=== PATIENT | male | born 2000 | race Caucasian/White ===

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

== ENCOUNTER 2023-09-22 22:25 | Observation (INO) | payer MEDICAID ==
[~2023-09-22] VITALS: Ht 175.3 cm; Wt 66.7 kg
[2023-09-22 22:25] VITALS: BP 130/75; PULSE 150; RESP 30; RESP 40; TEMP 97.4; O2SAT 98
[2023-09-22] MEDS ORDERED: methylPREDNISolone SS 125 MG/2 ML VIAL ONE (22:30)
[2023-09-22] MEDS ORDERED: MAG SULF 2000 MG/WATER PREMIX 50 ML IV ONE (22:30)
[2023-09-22] MEDS ORDERED: ALBUTEROL 0.083% 2.5 MG/3 ML NEBU INH ONE (22:32)
[2023-09-22] MEDS: IPRATROPIUM 0.02% 0.5 MG/2.5 ML NEBU INH ONE (22:33)
[2023-09-22] MEDS: ALBUTEROL 0.083% 2.5 MG/3 ML NEBU INH ONE (22:33)
[2023-09-22] MEDS ORDERED: IPRATROPIUM 0.02% 0.5 MG/2.5 ML NEBU INH ONE (22:33)
[2023-09-22 22:34] VITALS: PULSE 154; RESP 48; O2SAT 95
[2023-09-22 22:47] LABS: BASOPHILS # (AUTO) 0.1 K/uL (0.00-0.22); BASOPHILS % (AUTO) 0.7 % (0.0-2.0); EOSINOPHILS # (AUTO) 2.2 K/uL (0-0.4); EOSINOPHILS % (AUTO) 10.6 % (0.0-4.0); HEMATOCRIT 49.5 % (36-52); HEMOGLOBIN 15.7 g/dL (12.0-18.0); LYMPHOCYTES # (AUTO) 7.3 K/uL (2.0-11.5); LYMPHOCYTES % (AUTO) 34.5 % (20.5-51.1); MEAN CORPUSCULAR HEMOGLOBIN 22 pg (27-31); MEAN CORPUSCULAR HGB CONC 32 g/dL (33-37); MEAN CORPUSCULAR VOLUME 70.5 fL (80-94); MONOCYTES # (AUTO) 1.5 K/uL (0.8-1.0); NEUTROPHILS % (AUTO) 47.2 % (42.2-75.2); PLATELET COUNT (AUTO) 392 K/uL (140-450); RED BLOOD CELL COUNT(AUTO) 7.02 MIL/uL (4.20-6.10); RED CELL DISTRIBUTION WIDTH 14.6 % (11.6-13.7); WHITE BLOOD COUNT (AUTO) 21.2 K/uL (4.8-10.8)
[2023-09-22] MEDS: ONDANSETRON 4 MG/2 ML VIAL IVP ONE (22:49)
[2023-09-22] MEDS: methylPREDNISolone SS 125 MG/2 ML VIAL IVP ONE (22:50)
[2023-09-22] MEDS: MAG SULF 2000 MG/WATER PREMIX 50 ML IV ONE (23:01)
[2023-09-22 23:09] LABS: ANION GAP 18.1 (8-16); CALCIUM 8.9 mg/dL (8.5-10.1); CARBON DIOXIDE 23.6 mmol/L (21-32); POTASSIUM 3.7 mmol/L (3.5-5.1)
[2023-09-22 23:23] LABS: CREATININE 1.3 mg/dL (0.6-1.3)
[2023-09-22 23:54] LABS: FLU A ANTIGEN negative (NEGATIVE); FLU B ANTIGEN NEGATIVE (NEGATIVE)
[2023-09-23] VITALS (15 sets, daily range): BP systolic 106–128; BP diastolic 59–64; PULSE 102–127; RESP 16–24; TEMP 97.6–98.4; O2SAT 93–99
[2023-09-23] MEDS ORDERED: IPRATROPIUM 0.02% 0.5 MG/2.5 ML NEBU INH ONE (00:01)
[2023-09-23] MEDS ORDERED: ALBUTEROL 0.083% 2.5 MG/3 ML NEBU INH ONE ×3 (00:03→03:57)
[2023-09-23] MEDS: ALBUTEROL 0.083% 2.5 MG/3 ML NEBU INH ONE ×3 (00:07→02:48)
[2023-09-23] MEDS: IPRATROPIUM 0.02% 0.5 MG/2.5 ML NEBU INH ONE (00:10)
[2023-09-23] MEDS: BUDESONIDE 0.5 MG/2 ML NEBU INH ONE (01:00)
[2023-09-23] MEDS ORDERED: ONDANSETRON 4 MG/2 ML VIAL IM/IVP PRN (01:45)
[2023-09-23] MEDS ORDERED: POTASSIUM CHLORIDE 10 MEQ TABER PO PRN (01:45)
[2023-09-23] MEDS ORDERED: ALBUTEROL SULFATE/IPRATROPIU 3 ML SOL IH PRN (01:45)
[2023-09-23] MEDS ORDERED: guaiFENesin DM 200/20 MG-10 ML 10 ML UDC PO PRN (01:45)
[2023-09-23] MEDS ORDERED: ACETAMINOPHEN 325 MG TAB PO PRN (01:45)
[2023-09-23] MEDS ORDERED: DOCUSATE SODIUM 100 MG GELCAP PO PRN (01:45)
[2023-09-23] MEDS ORDERED: HYDROcodone/APAP 7.5/325 MG 1 TAB PO PRN (01:45)
[2023-09-23] MEDS ORDERED: ZOLPIDEM 5 MG TAB PO PRN (01:45)
[2023-09-23] MEDS: ALBUTEROL 0.083% 2.5 MG/3 ML NEBU INH PRN (02:22)
[2023-09-23] MEDS ORDERED: ALBUTEROL SULFATE/IPRATROPIU 3 ML SOL IH SCH (03:00)
[2023-09-23] MEDS: ALBUTEROL 0.083% 2.5 MG/3 ML NEBU INH SCH (03:58)
[2023-09-23] MEDS: NACL 0.9% 1,000 ML IV SCH (04:00)
[2023-09-23] MEDS ORDERED: MAG SULF 2000 MG/WATER PREMIX 50 ML IV ONE (06:25)
[2023-09-23 07:20] LABS: BASOPHILS % (AUTO) 0.2 % (0.0-2.0); EOSINOPHILS % (AUTO) 0.3 % (0.0-4.0); HEMATOCRIT 45.2 % (36-52); HEMOGLOBIN 14.4 g/dL (12.0-18.0); LYMPHOCYTES # (AUTO) 0.7 K/uL (2.0-11.5); LYMPHOCYTES % (AUTO) 6.1 % (20.5-51.1); MEAN CORPUSCULAR HEMOGLOBIN 23 pg (27-31); MEAN CORPUSCULAR HGB CONC 32 g/dL (33-37); MEAN CORPUSCULAR VOLUME 70.7 fL (80-94); MONOCYTES # (AUTO) 0.2 K/uL (0.8-1.0); MONOCYTES % (AUTO) 1.4 % (1.7-9.3); NEUTROPHILS # (AUTO) 10.2 K/uL (1.8-7.7); PLATELET COUNT (AUTO) 294 K/uL (140-450); RED BLOOD CELL COUNT(AUTO) 6.39 MIL/uL (4.20-6.10); RED CELL DISTRIBUTION WIDTH 14.6 % (11.6-13.7); WHITE BLOOD COUNT (AUTO) 11.1 K/uL (4.8-10.8)
[2023-09-23 07:41] LABS: ALBUMIN 3.6 g/dL (3.4-5.0); ANION GAP 20.8 (8-16); CALCIUM 8.5 mg/dL (8.5-10.1); CARBON DIOXIDE 19.8 mmol/L (21-32); CREATININE 1.6 mg/dL (0.6-1.3); MAGNESIUM 2.2 mg/dL (1.8-2.4); PHOSPHORUS 4.1 mg/dL (2.5-4.9); POTASSIUM 3.6 mmol/L (3.5-5.1); TOTAL BILIRUBIN 0.5 mg/dL (0.0-1.0); TOTAL PROTEIN, SERUM 7.7 g/dL (6.4-8.2)
[2023-09-23] MEDS: PANTOPRAZOLE 40 MG TABEC PO SCH (10:29)
[2023-09-23] MEDS: AZITHROMYCIN 500 MG in DEXTROSE 5% 250 ML IV SCH (12:56)
[2023-09-23] MEDS: methylPREDNISolone SS 40 MG/ML VIAL IVP SCH (15:42)
[2023-09-24] VITALS: BP 106/46; PULSE 117; PULSE 121; RESP 20; TEMP 97.7; O2SAT 97
[2023-09-24 04:00] VITALS: BP 105/44; PULSE 65; PULSE 98; RESP 19; TEMP 97.8; O2SAT 95
[2023-09-24 04:19] VITALS: PULSE 103; RESP 18; O2SAT 96
[2023-09-24] MEDS: ALBUTEROL 0.083% 2.5 MG/3 ML NEBU INH PRN (04:19)
[2023-09-24 07:11] LABS: HEMATOCRIT 39.2 % (36-52); HEMOGLOBIN 12.5 g/dL (12.0-18.0); LYMPHOCYTES % (AUTO) 6.1 % (20.5-51.1); MEAN CORPUSCULAR HEMOGLOBIN 22 pg (27-31); MEAN CORPUSCULAR HGB CONC 32 g/dL (33-37); MEAN CORPUSCULAR VOLUME 70.3 fL (80-94); MONOCYTES # (AUTO) 0.7 K/uL (0.8-1.0); NEUTROPHILS # (AUTO) 14.9 K/uL (1.8-7.7); NEUTROPHILS % (AUTO) 89.9 % (42.2-75.2); PLATELET COUNT (AUTO) 283 K/uL (140-450); RED BLOOD CELL COUNT(AUTO) 5.58 MIL/uL (4.20-6.10); RED CELL DISTRIBUTION WIDTH 14.4 % (11.6-13.7); WHITE BLOOD COUNT (AUTO) 16.6 K/uL (4.8-10.8)
[2023-09-24 07:39] LABS: ALBUMIN 3.2 g/dL (3.4-5.0); ANION GAP 15.1 (8-16); CALCIUM 8.3 mg/dL (8.5-10.1); CARBON DIOXIDE 23.1 mmol/L (21-32); POTASSIUM 4.2 mmol/L (3.5-5.1); TOTAL BILIRUBIN 0.3 mg/dL (0.0-1.0); TOTAL PROTEIN, SERUM 6.8 g/dL (6.4-8.2)
[2023-09-24 07:54] VITALS: PULSE 110; RESP 16; O2SAT 98
[2023-09-24 08:00] VITALS: BP 104/46; PULSE 107; PULSE 119; RESP 18; TEMP 98.1; O2SAT 95
[2023-09-24 11:28] VITALS: PULSE 103; RESP 18; O2SAT 97
[2023-09-24] MEDS ORDERED: AZIT250T3 PO (14:49)
[2023-09-24] MEDS ORDERED: PRED20TA5 PO (14:49)
[2023-09-24] MEDS ORDERED: FLUT1BLS8 IH (14:52)
[2023-09-24] MEDS ORDERED: MONT-72 PO (14:52)
[2023-09-25] MEDS ORDERED: predniSONE 20 MG TAB PO SCH (09:00)
== END 2023-09-24 17:53 | disposition home or self-care (01) ==
LOC: MED 22:25 → MTU 09-23 01:48 → EEVIPCON 09-23 03:45 → MTU 09-23 06:31
PROVIDERS: ADMIT Student in an Organized Health Care Education/Training Program; ATTEND Student in an Organized Health Care Education/Training Program
DX: J45.901 Unspecified asthma with (acute) exacerbation (principal); Z20.822 Contact with and (suspected) exposure to COVID-19; J45.902 Unspecified asthma with status asthmaticus; J96.01 Acute respiratory failure with hypoxia; R65.10 Systemic inflammatory response syndrome (SIRS) of non-infectious origin without acute organ dysfunction; R00.0 Tachycardia, unspecified; N17.9 Acute kidney failure, unspecified; D72.829 Elevated white blood cell count, unspecified; E86.0 Dehydration; Z79.899 Other long term (current) drug therapy
CPT/HCPCS: 36415; 71045; 76770; 80048; 80053; 83735; 84100; 85025; 87040; 87081; 87426; 87804; 94640; 94760; 96361; 96365; 96366; 96367; 96375; 96376; 99291; G0378; J0456; J2405; J2920; J2930; J3475; J7060; J7613; J7626; J7644; Q0092